=== PATIENT | male | born 1985 | race Caucasian/White ===

== ENCOUNTER 2023-02-08 10:37 | Emergency (ER) | payer MEDICAID, SELFPAY ==
[2023-02-08 10:38] VITALS: BP 120/80; PULSE 74; RESP 14; TEMP 35.5; O2SAT 100; BMI 30.2
--- NOTE | 2023-02-08 10:50 | EDS_ITS ---
HPI History of Present Illness Chief Complaint: Laceration Narrative Narrative: Chronic changes tired, it fell hitting his right hand causing immediate laceration he does not have much bony tenderness. No other injuries. Tetanus is not up-to-date [facility] Allergy/AdvReac Type Severity Reaction Status Date / Time No Known Allergies Allergy Verified 02/08/23 10:38 Social History Smoking Status: Current every day smoker tobacco type: cigarettes ROS ROS ED ROS Narrative Past medical history: none Medications: Reviewed Social history: Noncontributory Review of systems: Musculoskeletal: Hand injury as in HPI Skin: Abrasion as in HPI Neurological: No weakness or paresthesias Hematologic: No easy bleeding or easy bruising EXAM Physical Exam Narrative Exam Narrative: Physical exam General: Patient does not appear in significant distress . Head: Normocephalic, Atraumatic Neck: No C-spine tenderness Cardiovascular: Normal distal pulses Back: Nontender, Normal Inspection. Extremities: 7 Centimeter laceration the hand extending from the dorsum of the hand into the volar part on the ulnar side. Skin: Laceration as above Neurological: Normal strength and sensation Const Vital Signs: 02/08/23 10:38 Temperature 96 F L Temperature Source Temporal Pulse Rate 74 Respiratory Rate 14 Blood Pressure 120/80 Blood Pressure Mean 93 Pulse Ox 100 Oxygen Delivery Method Room Air PROC Procedures Lacerations hand lac: Length: 2.76 in Depth: Skin Shape: Linear Prep: Shure-Clens Laceration repair: Debrideded, Foreign material removed, Irrigated, Lidocaine and Local Suture Information: Ethilon and 4-0 (8) MDM MDM MDM Narrative Medical decision making narrative: Today interpreted by me as negative for fracture or foreign body. MDM: Per radiologist there is a potential of a foreign body. I debrided the wound and irrigated it quite well and was not able to see a foreign body. Patient did not have a foreign body sensation. Regardless I will place the patient on antibiotics and discharged home with wound care instructions. Further imaging is not needed. Radiography Diagnostic Testing: Clinical Impression(s) from Imaging Studies Hand X-Ray 02/08/23 10:55 IMPRESSION: Laceration over lying the base of the fifth proximal phalanx with a tiny radiopacity suggests a possible foreign body. Electronically Signed: Mo Singh MD at 11:13 EDT , Discharge Plan Triage Chief Complaint: Laceration ED Provider: Josué Mercedes Dx/Rx/DC Orders Clinical Impression: Contusion of hand, Hand laceration Instructions: ED Laceration Extremity Referrals: Liz Hansen MD [Non-Staff] - 10-14 Days suture removal Disposition Disposition: Home, Self Care
--- NOTE | 2023-02-08 10:55 | RAD_ITS ---
STUDY: X-RAY - RIGHT HAND REASON FOR EXAM: Male, 37 years old. Laceration overlying the proximal portion of the fourth and fifth metacarpals. TECHNIQUE: 3 view(s) of the hand. COMPARISON: None. FINDINGS: Normal radiocarpal articulation. Normal distal radioulnar joint. Normal visualized carpal bones. Normal carpal articulations Normal carpometacarpal articulation of the thumb. Normal second through fifth carpometacarpal joints. Normal metacarpi. Normal metacarpophalangeal joint of the thumb. Normal interphalangeal joint of the thumb. Normal proximal and distal phalanges of the thumb. Normal metacarpophalangeal joints of the second through fifth fingers. Normal proximal and distal interphalangeal joints of the second through fifth fingers. Normal phalanges of the second through fifth fingers. Soft tissue laceration overlying the base of the proximal phalanx of the fifth digit. There is evidence of a tiny radiopacity within the soft tissues suggests of possible foreign body. RAD/Hand Min 3 Views IMPRESSION: Laceration over lying the base of the fifth proximal phalanx with a tiny radiopacity suggests a possible foreign body. Electronically Signed: Mo Singh MD at 11:13 EDT ,
[2023-02-08] MEDS: Diphth,Pertuss(Acell),Tet Vac 0.5 ML Vial IM (11:06)
[2023-02-08] MEDS: Lidocaine 1% (20 ml mdv) 20 ML Vial INFILT (11:07)
[2023-02-08] MEDS: Cefazolin 1 GM/5 ML Vial IM (11:29)
== END 2023-02-08 11:54 | disposition home or self-care (01) ==
LOC: ED 11:51
PROVIDERS: Emergency Provider Emergency Medicine; Visit Provider Emergency Medicine
DX: S61.411A Laceration without foreign body of right hand, initial encounter (principal); S60.221A Contusion of right hand, initial encounter; F17.210 Nicotine dependence, cigarettes, uncomplicated; W19.XXXA Unspecified fall, initial encounter
CPT/HCPCS: 12002; 73130; 90715; 99283